=== PATIENT | female | born 1960 | race Caucasian/White ===

== ENCOUNTER 2024-08-16 09:30 | Emergency (ER) | payer MEDICARE, OTHER ==
[2024-08-16 09:41] VITALS: TEMP 97.9
--- NOTE | 2024-08-16 09:50 | ERPHSYRPT ---
- History of Present Illness Time Seen by Provider: 08/16/24 09:45 Source: patient, family Exam Limitations: no limitations Patient Subjective Stated Complaint: pt c/o of swollen glands/lumps in neck Triage Nursing Assessment: Pt brought to the ER by her friend, hypertensive, rates neck pain/soreness as 8/10, pulses normal, skin n/w/d, no difficulty breathing, denies chest pain, doesn't appear to be in any distress Physician History: This is a 63-year-old white female patient arrives by private vehicle accompanied by family/friend and is a patient of Dr. Adolph Oliver. For several days now she has had anterior neck pain, swelling and "lumps". Her primary care provider has scheduled her to undergo a ultrasound of her thyroid. It is scheduled for next week. Last week, she had labs performed. They are not available for me to review or interpret. Patient has not been notified about the results of those lab studies. Patient denies shortness of breath. Patient denies painful swallowing, patient denies chest pain. Patient denies cough. She has not had a fever. She denies wheezing and she denies stridor. Patient continues to smoke tobacco cigarettes daily. Patient has a history of hyperlipidemia, endometriosis, history of anal cancer treated with radiation therapy and chemotherapy. Patient does not take any medications. On arrival to the emergency department her room air oxygen saturation levels 100%. She does not appear to be in any distress Severity: mild Associated Symptoms: denies symptoms Allergies/Adverse Reactions: naproxen sodium [From Aleve] Allergy (Unknown, Verified 08/16/24 09:41) Hives Home Medications: No Reportable Medications [No Reported Medications] 09/08/13 [History] Hx Influenza Vaccination/Date Given: Yes Hx Pneumococcal Vaccination/Date Given: No Travel Risk - International Travel Have you traveled outside of the country in past 3 weeks: No - Emerging Infectious Disease Are you exhibiting symptoms associated with any current EIDs: No - Review of Systems Constitutional: No Symptoms Eyes: No Symptoms Ears, Nose, & Throat: Other (Anterior neck soft tissue pain) Respiratory: No Symptoms Cardiac: No Symptoms Abdominal/Gastrointestinal: No Symptoms Genitourinary Symptoms: No Symptoms Musculoskeletal: No Symptoms Skin: No Symptoms Neurological: No Symptoms Psychological: No Symptoms Endocrine: No Symptoms Hematologic/Lymphatic: No Symptoms Immunological/Allergic: No Symptoms All Other Systems: Reviewed and Negative - Past Medical History Pertinent Past Medical History: Yes Neurological History: No Pertinent History ENT History: No Pertinent History Cardiac History: High Cholesterol Respiratory History: No Pertinent History Endocrine Medical History: No Pertinent History Musculoskeletal History: No Pertinent History GI Medical History: Other History: No Pertinent History Psycho-Social History: No Pertinent History Female Reproductive Disorders: Endometriosis Other Medical History: anal cancer. radiation with chemo tx - Past Surgical History Past Surgical History: Yes Neuro Surgical History: No Pertinent History Cardiac: No Pertinent History Respiratory: No Pertinent History Gastrointestinal: No Pertinent History Genitourinary: No Pertinent History Musculoskeletal: No Pertinent History Female Surgical History: No Pertinent History Other Surgical History: laparoscopy with endometriosis removed. colonoscopy - Social History Smoking Status: Current every day smoker Exposure to second hand smoke: Yes Drug Use: none - Social Determinants of Health Will the patient participate in the screening: Yes Do you worry about a steady place to live?: No Do you have any problems with any of the following?: No known problems In the past 12 months,have you had to go without utilities?: No Transportation Issues: No Has anyone in your support network made you feel unsafe?: No Have you or anyone in your house had to go w/o enough food: No - Nursing Vital Signs Nursing Vital Signs: Initial Vital Signs Blood Pressure 162/68 08/16/24 09:35 O2 Sat by Pulse Oximetry 100 08/16/24 09:35 Pain Scale Pain Intensity 8 - Physical Exam General Appearance: no apparent distress, alert, anxiety Eye Exam: PERRL/EOMI, eyes nml inspection Ears, Nose, Throat Exam: normal ENT inspection, moist mucous membranes Neck Exam: normal inspection, supple, full range of motion, lymphadenopathy (Questionable, bilateral anterior cervical chain.), other (Tenderness in the anterior soft tissue neck region area to palpation. No evidence of cellulitis or infection), No mass Respiratory Exam: normal breath sounds, lungs clear, airway intact, No chest tenderness, No respiratory distress Cardiovascular Exam: regular rate/rhythm, normal heart sounds, normal peripheral pulses Gastrointestinal/Abdomen Exam: soft, normal bowel sounds, No tenderness Pelvic Exam: not done Rectal Exam: not done Back Exam: normal inspection, normal range of motion, No CVA tenderness, No vertebral tenderness Extremity Exam: normal inspection, normal range of motion, pelvis stable Neurologic Exam: alert, oriented x 3, cooperative, marketing researcher II-XII nml as tested SpO2: 100 - Course Nursing assessment & vital signs reviewed: Yes EKG Interpreted by Me: RATE (66), Sinus Rhythm, NORMAL AXIS, NORMAL INTERVALS, NORMAL QRS, NORMAL ST-T, Other (QTc is 390. No evidence of acute ischemia on this twelve-lead EKG.) Ordered Tests: Active Orders 24 hr Category Date Time Status Fuel Cell Assembler STAT Care 08/16/24 09:50 Active EKG-ER Only STAT Care 08/16/24 09:50 Active EKG-ER Only STAT Care 08/16/24 12:01 Active IV Insertion STAT Care 08/16/24 09:50 Active Pulse Oximetry (ED) STAT Care 08/16/24 09:50 Active NECK WO CONTRAST [CT] Stat Exams 08/16/24 09:55 Completed CBC W DIFF Stat Lab 08/16/24 10:08 Completed CMP Stat Lab 08/16/24 10:08 Completed MAGNESIUM Stat Lab 08/16/24 10:08 Completed TROPONIN Q4H Lab 08/16/24 10:08 Completed TROPONIN Q4H Lab 08/16/24 14:00 Ordered TROPONIN Q4H Lab 08/16/24 18:00 Ordered TSH, 3RD Generation Stat Lab 08/16/24 10:08 Completed Medication Summary Discontinued Medications Generic Name Dose Route Start Last Admin Trade Name Freq PRN Reason Stop Dose Admin Aspirin 324 mg 08/16/24 11:58 Aspirin 81 Mg Tab.Chew PO 08/16/24 11:59 STAT ONE Lab/Rad Data: Laboratory Result Diagrams 08/16/24 10:08 08/16/24 10:08 Laboratory Results 08/16/24 08/16/24 08/16/24 Range/Units 10:08 10:08 10:08 WBC (3.98-10.04) x10^3/uL RBC (3.93-5.22) x10^6/uL Hgb (11.2-15.7) g/dL Hct (34.1-44.9) % MCV (79.4-94.8) fL MCH (25.6-32.2) pg MCHC (32.2-35.5) g/dL RDW (11.7-14.4) % Plt Count (182-369) x10^3/uL MPV (9.4-12.3) fL Gran % (34.0-71.1) % Immature Gran % (Auto) (0.001-0.429) % Nucleat RBC Rel Count (0.00-0.2) % Eos # (Auto) (0.04-0.36) x10^3/uL Immature Gran # (Auto) (0.001-0.031) x10^3u/L Absolute Lymphs (auto) (1.18-3.74) x10^3/uL Absolute Monos (auto) (0.24-0.86) x10^3/uL Absolute Nucleated RBC (0.00-0.012) x10^3u/L Lymphocytes % (19.3-51.7) % Monocytes % (4.7-12.5) % Eosinophils % (0.7-5.8) % Basophils % (0.1-1.2) % Absolute Granulocytes (1.56-6.13) x10^3/uL Basophils # (0.01-0.08) x10^3/uL Sodium (135-145) mmol/L Potassium (3.5-5.1) mmol/L Chloride (98-107) mmol/L Carbon Dioxide (22-30) mmol/L Anion Gap (5-15) MEQ/L BUN (7-17) mg/dL Creatinine (0.52-1.04) mg/dL Estimated GFR ML/MIN Glucose (74-106) mg/dL Calcium (8.4-10.2) mg/dL Magnesium (1.6-2.3) mg/dL Total Bilirubin (0.2-1.3) mg/dL AST (14-36) U/L ALT (0-35) U/L Alkaline Phosphatase (38-126) U/L Troponin I 0.845 H* (0.000-0.033) ng/mL Serum Total Protein (6.3-8.2) g/dL Albumin (3.5-5.0) g/dL Free T4 1.16 (0.78-2.19) ng/dL TSH 3rd Generation (0.470-4.680) mIU/L Influenza Type A Ag NEGATIVE (NEGATIVE) Influenza Type B Ag NEGATIVE (NEGATIVE) RSV (PCR) NEGATIVE (NEGATIVE) SARS-CoV-2 (PCR) NEGATIVE (NEGATIVE) Group A Strep Antibody NOT DETECTED (NEGATIVE) 08/16/24 08/16/24 Range/Units 10:08 10:08 WBC 8.9 (3.98-10.04) x10^3/uL RBC 4.15 (3.93-5.22) x10^6/uL Hgb 13.3 (11.2-15.7) g/dL Hct 39.2 (34.1-44.9) % MCV 94.5 (79.4-94.8) fL MCH 32.0 (25.6-32.2) pg MCHC 33.9 (32.2-35.5) g/dL RDW 12.4 (11.7-14.4) % Plt Count 287 (182-369) x10^3/uL MPV 10.1 (9.4-12.3) fL Gran % 76.0 H (34.0-71.1) % Immature Gran % (Auto) 0.4 (0.001-0.429) % Nucleat RBC Rel Count 0.0 (0.00-0.2) % Eos # (Auto) 0.10 (0.04-0.36) x10^3/uL Immature Gran # (Auto) 0.04 H (0.001-0.031) x10^3u/L Absolute Lymphs (auto) 1.33 (1.18-3.74) x10^3/uL Absolute Monos (auto) 0.65 (0.24-0.86) x10^3/uL Absolute Nucleated RBC 0.00 (0.00-0.012) x10^3u/L Lymphocytes % 14.9 L (19.3-51.7) % Monocytes % 7.3 (4.7-12.5) % Eosinophils % 1.1 (0.7-5.8) % Basophils % 0.3 (0.1-1.2) % Absolute Granulocytes 6.75 H (1.56-6.13) x10^3/uL Basophils # 0.03 (0.01-0.08) x10^3/uL Sodium 141 (135-145) mmol/L Potassium 4.0 (3.5-5.1) mmol/L Chloride 107 (98-107) mmol/L Carbon Dioxide 24 (22-30) mmol/L Anion Gap 14.5 (5-15) MEQ/L BUN 11 (7-17) mg/dL Creatinine 0.68 (0.52-1.04) mg/dL Estimated GFR 96.6 ML/MIN Glucose 135 H (74-106) mg/dL Calcium 9.5 (8.4-10.2) mg/dL Magnesium 2.1 (1.6-2.3) mg/dL Total Bilirubin 0.60 (0.2-1.3) mg/dL AST 35 (14-36) U/L ALT 24 (0-35) U/L Alkaline Phosphatase 78 (38-126) U/L Troponin I (0.000-0.033) ng/mL Serum Total Protein 6.7 (6.3-8.2) g/dL Albumin 4.3 (3.5-5.0) g/dL Free T4 (0.78-2.19) ng/dL TSH 3rd Generation 2.899 (0.470-4.680) mIU/L Influenza Type A Ag (NEGATIVE) Influenza Type B Ag (NEGATIVE) RSV (PCR) (NEGATIVE) SARS-CoV-2 (PCR) (NEGATIVE) Group A Strep Antibody (NEGATIVE) - Progress Progress: improved, pain not gone completely Progress Note: 08/16/24 10:57 My medical decision making and the assignment of moderate complexity is based on review of the patient's past medical history, review of the patient's medication list, reviewed patient drug allergy list, history present illness and physical findings on examination. The workup in this patient includes placement of an intravenous line, CBC, CMP, magnesium level, troponin level, twelve-lead EKG, viral swabs, strep test, CT scan of the soft tissues of the neck without contrast. Differential diagnosis includes but is not limited to thyroid abnormalities, myocardial infarction, pharyngitis (viral or bacterial), soft tissue of the neck inflammation/abscess 08/16/24 11:01 I interpreted the patient's laboratory data results. Based on the laboratory data results, the patient has a non-STEMI with an initial troponin level of 0.845. This certainly could account for her neck pain. 08/16/24 11:[address] scan of the soft tissue of the neck without contrast was interpreted by the radiologist. The impression states bilateral internal lymphoceles right greater than left. There is significant bilateral carotid bulb calcified atheromatous plaque of concentric shape. Possible significant stenoses. Right side greater than left. There is multilevel degenerative cervical disc herniations. There is small reactionary left submandibular lymph node 08/16/24 12:05 I spoke with Millie at the transfer center of [facility] in [facility]. She transferred me to Dr. Chacon, the emergency room physician on. I reviewed the patient presenting complaint, past medical history, and results of our workup. He does except the patient in transfer. However, he did ask that I repeat the twelve-lead EKG and troponin level. He said we can still send the patient even though the requested troponin level will not have resulted. Counseled pt/family regarding: lab results, diagnosis, need for follow-up, rad results Medical Desision Making - Independent Historian Additional History obtained from: Relative/friend - Diagnostic Testing Diagnostic test were ordered, analyzed, and reviewed by me: Yes Radiological Interpretation: Reviewed by me, Teleradiologist Report - Risk of complications The pt has a high risk of morbidity or mortality based on: Decision regarding hospitilization or escalation of hosp level of care - Departure Departure Disposition: Transfer Clinical Impression: Non-STEMI (non-ST elevated myocardial infarction), Bilateral neck pain Condition: Stable Critical Care Time: Yes Critical Care Time(excluding separately billable procedures): Critical 30-74 mins (45 minutes) Referrals: LETICIA OLIVER [Primary Care Provider, INTERNAL MEDICINE] - Follow up/PCP as directed
[2024-08-16 10:08] LABS: Absolute Neutrophil Ct (ANC) 6.75 x10^3/uL (1.56-6.13); BASOPHIL % 0.3 % (0.1-1.2); Basophil (Absolute #) 0.03 x10^3/uL (0.01-0.08); Eosinophil % 1.1 % (0.7-5.8); Hematocrit 39.2 % (34.1-44.9); Hemoglobin 13.3 g/dL (11.2-15.7); IMMATURE GRAN # 0.04 x10^3u/L (0.001-0.031); IMMATURE GRAN % 0.4 % (0.001-0.429); Lymphocyte (Absolute #) 1.33 x10^3/uL (1.18-3.74); Lymphocytes % 14.9 % (19.3-51.7); Mean Cell Volume 94.5 fL (79.4-94.8); Mean Corpuscular Hgb Concent. 33.9 g/dL (32.2-35.5); Mean Platelet Volume 10.1 fL (9.4-12.3); Monocyte (Absolute #) 0.65 x10^3/uL (0.24-0.86); Monocytes % 7.3 % (4.7-12.5); Platelet Count 287 x10^3/uL (182-369); Red Blood Count 4.15 x10^6/uL (3.93-5.22); Red Cell Distribution Width 12.4 % (11.7-14.4); White Blood Count 8.9 x10^3/uL (3.98-10.04)
[2024-08-16 10:33] LABS: Group A Strep NOT DETECTED (NEGATIVE)
[2024-08-16 10:45] LABS: INFLUENZA A NEGATIVE (NEGATIVE); INFLUENZA B NEGATIVE (NEGATIVE); RESPIRATORY SYNCTIAL VIRUS NEGATIVE (NEGATIVE); SARS-CoV-2 Xpert Express NEGATIVE (NEGATIVE)
[2024-08-16 10:52] LABS: ALBUMIN 4.3 g/dL (3.5-5.0); ANION GAP 14.5 MEQ/L (5-15); BILIRUBIN,TOTAL 0.6 mg/dL (0.2-1.3); Calcium 9.5 mg/dL (8.4-10.2); Creatinine 1 0.68 mg/dL (0.52-1.04); EST GLOMERULAR FILTRATION RATE 96.6 ML/MIN; MAGNESIUM 2.1 mg/dL (1.6-2.3); TSH, 3RD Generation 2.899 mIU/L (0.470-4.680); Total Protein 6.7 g/dL (6.3-8.2)
--- NOTE | 2024-08-16 11:20 | XRAY ---
CLINICAL HISTORY: Pain and lumps COMPARISON: None. TECHNIQUE: CT scan of the neck was performed without administration of intravenous contrast. Sagittal and coronal reconstructions were obtained. One of the following dose reduction techniques were utilized for this exam: Automated exposure control, adjustment of the mA and/or kV according to patient size, and use of iterative reconstruction. CTDI: 16.18 mGy, DLP: 420.28 mGy-cm. FINDINGS: Nasopharynx: Normal size and appearance. No masses. Oropharynx: Normal size and appearance. No masses. Small right tonsillar calcification noted. Larynx and Hypopharynx: Bilateral small internal laryngeoceles are noted as pure air-filled outpouchings anterolateral to the epiglottis, more obvious at the right side, measuring currently about [id number] mm, no soft tissue component appreicated. Normal appearance of the laryngeal structures. Vocal cords are normal in appearance and movement. No masses. Thyroid Gland: Normal size and morphology. No nodules or masses. Salivary Glands: Parotid, submandibular, and sublingual glands are normal in size and appearance. No evidence of sialadenitis or masses. Lymph Nodes: Mildly enalrged left submandibular lymph node is seen of reactionary criteria measures 14x6 mm. Vascular Structures: Bilateral carotid bulbs show calcified atherosclerotic plaques with suggested significant stenosis more obvious at the right side with extension to the proximal segment of the right ICA Further assessment may be required. No evidence of vascular malformations or aneurysms. Soft Tissues: Normal appearance of the soft tissues of the neck. No abnormal masses, swelling, or fluid collections. Bones: Moderate spondylosis of the cervical spine with multilevel degenerative disc herniations & mild C5-6 spinal canal stenosis noted. No fractures, lytic or sclerotic lesions. Airway: The trachea and main bronchi are patent. No evidence of tracheal or bronchial stenosis or masses. IMPRESSION: 1. 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 2. Significant bilateral carotid bulbs calcified atheromatous plaques of concentric shape with possible significant stenosis, more obvious at the right side. 3. Moderate spondylosis of the cervical spine with multilevel degenerative disc herniations & mild C5-6 spinal canal stenosis noted. 4. A small reactionary left submandibular lymph node is seen. Electronically Signed by: Leonela Flower MD. (08/16/2024 11:16:15 EDT)
[2024-08-16] MEDS ORDERED: BABY ASPIRIN 81 MG CHEW ONE (12:05)
[2024-08-16] MEDS: BABY ASPIRIN 81 MG CHEW PO ONE (12:06)
[2024-08-16] MEDS: HEPARIN 5000 UNITS/0.5 ML (HIGH RISK MED) IV ONE (13:06)
[2024-08-16] MEDS ORDERED: HEPARIN 5000 UNITS/0.5 ML (HIGH RISK MED) ONE (13:06)
[2024-08-16 13:34] VITALS: BP 142/59; PULSE 66; RESP 13; O2SAT 98
== END 2024-08-16 13:10 | disposition short-term general hospital (02) ==
LOC: ED 09:30
DX: I21.4 Non-ST elevation (NSTEMI) myocardial infarction (principal); M54.2 Cervicalgia; E78.5 Hyperlipidemia, unspecified; Z72.0 Tobacco use
CPT/HCPCS: 0241U; 36415; 70490; 80053; 83735; 84439; 84443; 84484; 85025; 87651; 93005; 93041; 94760; 96374; 99291; 99284; J1644; A9270-GY